=== PATIENT | male | born 2000 | race African-American/Black ===

== ENCOUNTER 2022-06-16 04:05 | Emergency (ER) | payer MEDICAID ==
[~2022-06-16] VITALS: Ht 177.8 cm; Wt 221.8 kg
[2022-06-16 04:10] VITALS: BP 169/113
== END 2022-06-16 10:32 | disposition left against medical advice (07) ==
LOC: ER 04:05
DX: R51.9 Headache, unspecified (principal); G45.9 Transient cerebral ischemic attack, unspecified; H91.92 Unspecified hearing loss, left ear; I10 Essential (primary) hypertension; J45.909 Unspecified asthma, uncomplicated